=== PATIENT | female | born 1970 | race Caucasian/White ===

== ENCOUNTER → 2020-02-03 10:25 | Outpatient (CLI) | payer SELFPAY ==
--- NOTE | 2020-02-03 10:35 | MRI_ITS ---
STUDY: MRI LUMBAR SPINE WITHOUT CONTRAST REASON FOR EXAM: Female, 49 years old. segmental/somatic dysfunction of lumbar region -- pain low back and left leg since 08/2019 TECHNIQUE: Standardized fat and water weighted pulse sequences were obtained in the sagittal and axial planes. COMPARISON: None. FINDINGS: Mild lumbar straightening. No significant scoliosis. Conus medullaris terminates normally at the L1 level. No acute fracture. No dislocation. No bone destruction. Sacral Tarlov cyst. Normal paraspinal muscles. Sacrum intact. Normal aorta. Distended gallbladder. T12-L1: Normal endplates. Normal disc height, hydration and morphology. Normal bilateral facet joints. Normal central canal and bilateral lateral recesses. Normal bilateral intervertebral neural foramina. L1-2: Normal endplates. Normal disc height, hydration and morphology. Normal bilateral facet joints. Normal central canal and bilateral lateral recesses. Normal bilateral intervertebral neural foramina. L2-3: Normal endplates. Mild disc desiccation. Normal bilateral facet joints. Normal central canal and bilateral lateral recesses. Normal bilateral intervertebral neural foramina. L3-4: Normal endplates. Shallow disc bulge. Normal bilateral facet joints. Normal central canal and bilateral lateral recesses. Normal bilateral intervertebral neural foramina. L4-5: Normal endplates. Minimal disc desiccation. Normal bilateral facet joints. Normal central canal and bilateral lateral recesses. Normal bilateral intervertebral neural foramina. L5-S1: Normal endplates. Normal disc height, hydration and morphology. Normal bilateral facet joints. Normal central canal and bilateral lateral recesses. Normal bilateral intervertebral neural foramina. MRI/Spine Lumbar (Routine) IMPRESSION: Minimal intervertebral disc disease without canal narrowing No significant lateral recess or neural foraminal narrowing Mild lumbar straightening without significant osseous degenerative features Electronically Signed: Dane Huerta DO at 12:15 EDT Tel , Service support ,
== END ==
DX: M99.04 Segmental and somatic dysfunction of sacral region (principal); M99.03 Segmental and somatic dysfunction of lumbar region
CPT/HCPCS: 72148

== ENCOUNTER 2021-05-25 06:20 | Day surgery (SDC) | payer SELFPAY ==
[2021-05-25 07:01] LABS: Internal QC Validated? YES +Cl - CLEAR BKGD; Pregnancy, Urine Negative Negative
[2021-05-25 07:17] VITALS: BP 100/71; PULSE 64; RESP 16; TEMP 36.4; O2SAT 100; BMI 18.9
[2021-05-25] MEDS: Lactated Ringers 1,000 ML 100 ML IV (07:29)
--- NOTE | 2021-05-25 07:41 | HP.PCM_ITS ---
History and Physical Date of Admission: 05/25/21 Date of Service: 03/27/21 MR#:[id number]:[id number]: MATY CELESTE #:[id number]:[id number] Provider:Farzana George/Sex: 50/F [facility] Vital Signs 03/27/21 08:28 Height 5 ft 7 in Weight: 125 lb BMI 19.5 BP 119/73 Blood Pressure Location Rt brachial Position Sitting Respiration 16 Intake Visit Reasons: CSCOPE, CHANGE BOWEL HABITS Chief Complaint: family hx Overlock Elastic Attacher Required: No Is patient in pain?: No Allergies No Known Allergies Allergy (Verified 03/27/21 08:29) Medications ergocalciferol (vitamin D2) 50 mcg (2,000 unit) capsule 50 mcg PO DAILY 03/27/21 [History Confirmed 03/27/21] magnesium 250 mg tablet 250 mg PO DAILY 03/27/21 [History Confirmed 03/27/21] omega-3 fatty acids-fish oil 300 mg-500 mg capsule cap PO 03/27/21 [History Confirmed 03/27/21] pyridoxine (vitamin B6) 500 mg tablet 500 mg PO DAILY 03/27/21 [History Confirmed 03/27/21] turmeric 400 mg capsule mg PO 03/27/21 [History Confirmed 03/27/21] vitamin A palmitate 10,000 unit tablet 10,000 unit PO DAILY 03/27/21 [History Confirmed 03/27/21] vitamin E 200 unit capsule 200 unit PO DAILY 03/27/21 [History Confirmed 03/27/21] zinc 50 mg tablet 50 mg PO DAILY 03/27/21 [History Confirmed 03/27/21] [facility] Medical History (Updated 03/27/21 @ 09:[address] Jonathan Galeana MD) Back problem Family History (Updated 03/27/21 @ 08:28 by Lena Yeboah) Grandfather Colon cancer Father Hypertension Mother Cancer multiple myeloma Social History (Updated 03/27/21 @ 08:28 by Lena Yeboah) Smoking Status: Never smoker alcohol intake: never HPI HPI HPI: MATY CELESTE, is a 50 F who presents to the office today with need to schedule screening colonoscopy. They are self-referred. Patient has not had prior colonoscopy. Patient has no personal history of inflammatory bowel disease, diverticulitis, or colon cancer. They describe their bowel habits as normal/regular and they noticed no blood with their stools. Patient has family history of colon cancer in paternal grandfather and paternal aunt?both were diagnosed at advanced ages. The patient's weight is not stable?she states this is gone on for many years and she routinely fluctuates 5 to 7 pounds per week, but denies any sustained unintentional weight loss. Ms. Celeste does take fish oil supplements. She and her significant other lead very active lifestyles including bike riding and weight lifting in the gym. ROS General General: No weight change, appetite, fatigue, colon cancer, breast cancer or weakness HEENT HEENT: No difficulty swallowing, eye injury, eye surgery, swollen glands or hoarseness Endo Endocrine: No thyroid disease, diabetes mellitus, thyroid cancer, Hair loss, heat intolerance or cold intolerance Skin Skin: No rash or changing moles Breast Breast: No left breast lump, right breast lump, nipple discharge, breast pain, abnormal mammogram, abnormal US or breast enlargement Musc Musculoskeletal: Yes back problems; No arthritis, rheumatoid arthritis, gout or joint pain Cardio Cardiovascular: No murmur, pacemaker, heart disease, atrial fibrillation, high blood pressure, heart attack, heart stent, palpitations, shortness of breat with exertion or chest pain Psych Psychiatric: No depression, anxiety or hearing voices Resp Respiratory: No shortness of breath, No sleep apnea, No cough, No COPD, No asthma, No emphysema and No wheezing Gastro Gastrointestinal: No abdominal pain, No nausea or vomiting, No diarrhea, No constipation, No blood in stool, No acid reflux, No hemorrhoids, No ulcers, No gallbladder problem and No black,tarry stools Ant Hematologic: No blood thinners, No blood disorders, No bleeding, No anemia and No blood clots Neuro Neurologic: No system reviewed and no additional complaints, except as documented, No as per HPI, No abnormal gait, No abnormal hearing, No abnormal movements, No abnormal speech, No behavioral changes, No burning sensations, No confusion, No convulsions, No disequilibrium, No dizziness, No localized weakness, No frequent falls, No headache(s), No lack of coordination, No loss of vision, No memory loss, No numbness, No other visual disturbances, No radicular pain, No restless legs, No sensory deficit, No syncope, No tingling, No tremor(s), No weakness and No other Exam Const General: cooperative, healthy appearing and no acute distress Resp Effort & Inspection: normal respiratory effort Auscultation: clear to auscultation bilaterally, no rales, no rhonchi and no wheezes Cardio Rate: regular rate Rhythm: regular rhythm Heart Sounds: S1 normal and S2 normal GI Inspection: non-distended, no scars and visible herniation (Small umbilical) Palpation: soft, hernia umbilical (Fat-containing, reducible) and nontender Assessment and Plan Assessment and Plan (1) Colon cancer screening: Status: Acute Comment: Patient is due to complete screening colonoscopy given her age. She has 2 relatives on her father's side with histories of colon cancer. However both were diagnosed will be on 60 years of age?suggesting an overall average colon cancer risk. Patient has no present GI complaints. Plan - Dr. Jonathan Galeana MD: Plan will be to complete colonoscopy on first mutually?agreeable date under local MAC. Pre-procedure prep discussed and paper instructions provided. Patient is also made aware that she will need to have a local hazmat driver with her the day of the procedure. (2) Umbilical hernia without obstruction and without gangrene: Status: Acute Comment: Incidentally?noted. Patient unaware until today's exam. I did discuss with her the merits of an elective repair to hopefully avoid significant complications long-term. In conjunction with this discussion I shared with her the need to plan for convalescent time so that the repair is not stressed?especially in light of her active lifestyle. She seems to express appreciation for this information and would like additional time to consider possible surgical intervention. Plan - Dr. Jonathan Galeana MD: ?Patient's hernia would be amenable to a primary tissue repair should she so choose to have this completed. Will await word from her whether she is interested in pursuing this. Coding Level of Care Code Off vis,est,level 3 Diagnoses Colon cancer screening Z12.11 Umbilical hernia without obstruction and without gangrene K42.9 I have re-examined the patient. There are no clinical changes since date of exam. She states that she completed her prep without any difficulty. She confirms that her output has been clear. She asked further questions about her umbilical hernia and requests an abdominal ultrasound before proceeding with any further discussions of surgical intervention. Plan to proceed today with screening colonoscopy under local MAC.
[2021-05-25 09:30] VITALS: BP 100/71; BP 112/68; PULSE 70; RESP 14; TEMP 35.8; O2SAT 100
--- NOTE | 2021-05-25 09:34 | OP.COLON_ITS ---
Patient Name: Disha Andino Procedure Date: 05/25/2021 8:43 AM Date of : 1970 Age: 50 Procedure: Colonoscopy Indications: Screening for colorectal malignant neoplasm Providers: Jonathan Galeana MD Referring MD: Jonathan Galeana MD Medicines: See the Anesthesia note for documentation of the administered medications Patient Profile: This is a 50 year old female. Refer to note in patient chart for documentation of history and physical. Last Colonoscopy: none. The patient's first colonoscopy is today. Complications: No immediate complications. Estimated blood loss: Minimal. Procedure: Pre-Anesthesia Assessment: - The anesthesia plan was to use moderate sedation/analgesia (conscious sedation). - The heart rate, respiratory rate, oxygen saturations, blood pressure, adequacy of pulmonary ventilation, and response to care were monitored throughout the procedure. After I obtained informed consent, the scope was passed under direct vision. Throughout the procedure, the patient's blood pressure, pulse, and oxygen saturations were monitored continuously. The adult colonoscope was introduced through the anus and advanced to the terminal ileum. The colonoscopy was somewhat difficult due to a tortuous colon. Successful completion of the procedure was aided by applying abdominal pressure. The patient tolerated the procedure well. The quality of the bowel preparation was adequate to identify polyps. The terminal ileum and the rectum were photographed. Scope In: 8:55:01 AM Scope Withdrawal Time 0 hours 14 minutes 35 seconds Scope Out: 9:25:40 AM Total Procedure Duration Time 0 hours 30 minutes 39 seconds Findings: The entire examined colon appeared normal on direct and retroflexion views. Skin tags were found on perianal exam. Impression: - The entire examined colon is normal on direct and retroflexion views. - Perianal skin tags found on perianal exam. - No specimens collected. Recommendation: - Discharge patient to home (via wheelchair). - Repeat colonoscopy in 10 years for screening purposes. - Continue present medications. Procedure Code(s): --- Professional --- G0121, Colorectal cancer screening; colonoscopy on individual not meeting criteria for high risk Diagnosis Code(s): --- Professional --- Z12.11, Encounter for screening for malignant neoplasm of colon K64.4, Residual hemorrhoidal skin tags CPT copyright 2017 [employer]. All rights reserved. The codes documented in this report are preliminary and upon yard hostler review may be revised to meet current compliance requirements. Jonathan Galeana MD 05/25/2021 9:33:45 AM This report has been signed electronically. Number of Addenda: 0 Note Initiated On: 05/25/2021 8:43 AM
[2021-05-25 09:35] VITALS: BP 100/71; BP 114/62; PULSE 69; RESP 16; O2SAT 100
--- NOTE | 2021-05-25 09:35 | OP.CCLET_ITS ---
05/25/2021 No Primary Care Physician Re : Colonoscopy procedure for Disha Andino Dear Care Physician This procedure was performed on April. My impressions and recommendations are as follows: Impressions : - The entire examined colon is normal on direct and retroflexion views. - Perianal skin tags found on perianal exam. - No specimens collected. Recommendations : - Discharge patient to home (via wheelchair). - Repeat colonoscopy in 10 years for screening purposes. - Continue present medications. My findings are described in the full procedure note, which is enclosed. If I can be of further assistance, please feel free to contact me at Doctor phone number(s): , Work: . Sincerely, Jonathan Galeana MD 05/25/2021 9:33:45 AM This report has been signed electronically.
[2021-05-25 09:40] VITALS: BP 100/71; BP 107/73; PULSE 68; RESP 16; O2SAT 100
[2021-05-25 09:45] VITALS: BP 100/71; BP 103/66; PULSE 63; RESP 16; TEMP 36.1; O2SAT 100
[2021-05-25 09:59] VITALS: BP 100/71
== END 2021-05-25 10:20 ==
LOC: EN 06:24 → AC 06:26
PROVIDERS: Anesthesiology; Referring Provider Surgery; Visit Provider Surgery
PROC: 0DJD8ZZ Inspection of Lower Intestinal Tract, Via Natural or Artificial Opening Endoscopic (ICD-10-PCS; CPT 45378; principal; 2021-05-25 07:25)
DX: K64.4 Residual hemorrhoidal skin tags (principal); Q43.8 Other specified congenital malformations of intestine; Z80.0 Family history of malignant neoplasm of digestive organs; Z79.899 Other long term (current) drug therapy
CPT/HCPCS: 45378; 81025; 87426; C9803; J7120; J2405

== ENCOUNTER 2021-09-04 06:48 | Outpatient (CLI) | payer SELFPAY ==
--- NOTE | 2021-09-04 06:54 | CT_ITS ---
STUDY: CT ABDOMEN AND PELVIS WITH CONTRAST REASON FOR EXAM: Female, 50 years old. Abdominal bulging, possible hernia RADIATION DOSAGE (If Supplied By Facility): CTDIvol = ( 16.02 ) mGy, DLP = ( 411.4 ) mGycm TECHNIQUE: Transaxial images were obtained from the dome of the diaphragm to the symphysis pubis without oral contrast. IV 100mL Isovue-300 was administered. Sagittal and coronal images were reconstructed. Individualized dose optimization techniques were used for this CT. COMPARISON: None. FINDINGS: The visualized lung bases are unremarkable. The visualized portions of the heart are within normal limits. Normal liver. Normal gallbladder and extrahepatic biliary system. Normal spleen. Normal pancreas. Normal bilateral adrenal glands. Normal right kidney. Normal left kidney. Normal visualized stomach. Normal small intestine. Normal colon. The appendix is visualized and appears normal. Normal abdominal aorta. Normal inferior vena cava. Normal retroperitoneum. Nondistended, poorly evaluated urinary bladder. There is a small (1.0 x 1.7 cm) umbilical hernia containing fat. Normal osseous structures. CT/Abdomen/Pelvis W IV Cont ONLY IMPRESSION: Very small periumbilical fat-containing hernia. No inguinal hernia. Electronically Signed: Jung Herr MD (Brooks) at 8:18 EST Reading Location ID and State: / [place] , Service support ,
== END 2021-09-04 23:59 | disposition home or self-care (01) ==
PROVIDERS: Referring Provider Surgery; Visit Provider Surgery
DX: K46.9 Unspecified abdominal hernia without obstruction or gangrene (principal)
CPT/HCPCS: 74177; Q9967

== ENCOUNTER → 2021-11-20 | Outpatient (CLI) | payer SELFPAY ==
[2021-11-27 16:02] LABS: HPV APTIMA, High Risk Negative (Negative)
== END | disposition home or self-care (01) ==
LOC: LABSPEC 17:48
PROVIDERS: Visit Provider Nurse Practitioner Women's Health
DX: Z12.4 Encounter for screening for malignant neoplasm of cervix (principal)
CPT/HCPCS: 87624; 88175; G0145

== ENCOUNTER → 2022-02-12 | Outpatient (CLI) | payer SELFPAY ==
--- NOTE | 2022-02-12 18:18 | US_ITS ---
STUDY: ULTRASOUND OF THE FEMALE PELVIS - COMPLETE REASON FOR EXAM: Female, 51 years old. Abnormal bleeding LMP: 12/10/2021 TECHNIQUE: Transabdominal and Transvaginal TECHNICAL QUALITY: Adequate. COMPARISON: None. FINDINGS: The uterus is retroflexed and is in a midline position. The uterus measures 6.3 x 4.3 x 2.5 cm. Normal uterine cervix. The endometrium measures 1.7 mm in thickness, and is hyperechoic. There is no demonstrated endometrial mass. 2 separate uterine fibroids, both measure approximately 2.2 cm. I.U.D. - The patient does not have an I.U.D. The right ovary is visualized. The right ovary measures 2.3 x 1.4 x 0.8 cm. There is no right ovarian cyst or ovarian mass. There is no visualized right adnexal mass or complex lesion. There is normal arterial and normal venous vascularity. The left ovary is visualized. The left ovary measures 3.1 x 2.2 x 0.9 cm. There is no left ovarian cyst or ovarian mass. There is no visualized left adnexal mass or complex lesion. There is normal arterial and normal venous vascularity. There is moderate free fluid in the cul-de-sac of uncertain etiology The bladder is incompletely distended There is a left inguinal hernia measuring 2.5 x 2.2 x 0.9 cm with subcentimeter in short axis dimension physiologic left inguinal lymph nodes. US/Pelvic (Non ) IMPRESSION: 2 small uterine fibroids, endometrium is of normal thickness for age No suspicious adnexal mass there is mild to moderate free fluid in the cul-de-sac of uncertain etiology Left inguinal hernia with associated subcentimeter in short axis dimension physiologic lymph nodes Electronically Signed: Sumanth Jeffrey MD at 23:19 EDT ,
--- NOTE | 2022-02-12 18:18 | US_ITS ---
STUDY: ULTRASOUND OF THE FEMALE PELVIS - COMPLETE REASON FOR EXAM: Female, 51 years old. Abnormal bleeding LMP: 12/10/2021 TECHNIQUE: Transabdominal and Transvaginal TECHNICAL QUALITY: Adequate. COMPARISON: None. FINDINGS: The uterus is retroflexed and is in a midline position. The uterus measures 6.3 x 4.3 x 2.5 cm. Normal uterine cervix. The endometrium measures 1.7 mm in thickness, and is hyperechoic. There is no demonstrated endometrial mass. 2 separate uterine fibroids, both measure approximately 2.2 cm. I.U.D. - The patient does not have an I.U.D. The right ovary is visualized. The right ovary measures 2.3 x 1.4 x 0.8 cm. There is no right ovarian cyst or ovarian mass. There is no visualized right adnexal mass or complex lesion. There is normal arterial and normal venous vascularity. The left ovary is visualized. The left ovary measures 3.1 x 2.2 x 0.9 cm. There is no left ovarian cyst or ovarian mass. There is no visualized left adnexal mass or complex lesion. There is normal arterial and normal venous vascularity. There is moderate free fluid in the cul-de-sac of uncertain etiology The bladder is incompletely distended There is a left inguinal hernia measuring 2.5 x 2.2 x 0.9 cm with subcentimeter in short axis dimension physiologic left inguinal lymph nodes. US/Transvaginal Non- IMPRESSION: 2 small uterine fibroids, endometrium is of normal thickness for age No suspicious adnexal mass there is mild to moderate free fluid in the cul-de-sac of uncertain etiology Left inguinal hernia with associated subcentimeter in short axis dimension physiologic lymph nodes Electronically Signed: Sumanth Jeffrey MD at 23:19 EDT ,
== END | disposition home or self-care (01) ==
PROVIDERS: Visit Provider Nurse Practitioner Women's Health
DX: N94.6 Dysmenorrhea, unspecified (principal)
CPT/HCPCS: 76830; 76856

== ENCOUNTER → 2022-07-10 | Outpatient (CLI) | payer SELFPAY, BC ==
--- NOTE | 2022-07-10 16:57 | CT_ITS ---
EXAM: CT abdomen and pelvis with contrast. HISTORY: incarcerated hernia TECHNIQUE: CT Abdomen And Pelvis W/ Contrast Injection. A radiation dose optimization technique was used for this scan. COMPARISON: CT abdomen and pelvis September 04, 2021. LIMITATIONS: None. LOWER CHEST: Normal. LIVER: Normal. GALLBLADDER: Normal. BILE DUCTS: Normal. PANCREAS: Normal. SPLEEN: Normal. ADRENAL GLANDS: Normal. KIDNEYS/URETERS/BLADDER: 3 mm nonobstructing left renal stone. No obstructing ureteral stones or hydronephrosis. AORTA: Normal caliber. BOWEL/MESENTERY: No evidence of colitis. A small umbilical hernia contains only fat. A small left inguinal hernia contains fat and a possible mild amount of fluid. No herniated bowel. No bowel obstruction. APPENDIX: Normal. PERITONEUM: Normal. REPRODUCTIVE ORGANS: Few possible fibroids. BONES/SOFT TISSUES: No acute fracture. OTHER: None. CONCLUSION: Small fat-containing umbilical and left inguinal hernias. No herniated bowel. No bowel obstruction. Electronically Signed: Deng Sun MD at 4:00 EST , CT/Abdomen/Pelvis WITH Contrast IMPRESSION: undefined
== END | disposition home or self-care (01) ==
LOC: CT 16:55
PROVIDERS: Visit Provider Surgery
DX: R10.32 Left lower quadrant pain (principal)
CPT/HCPCS: 74177; Q9967

== ENCOUNTER 2022-08-20 09:36 | Day surgery (SDC) | payer BC, SELFPAY ==
--- NOTE | 2022-08-17 07:01 | EKG12_ITS ---
Test Reason : PRE Blood Pressure : / mmHG Vent. Rate : 060 BPM Atrial Rate : 060 BPM P-R Int : 164 ms QRS Dur : 090 ms QT Int : 408 ms P-R-T Axes : 083 086 078 degrees QTc Int : 408 ms Normal sinus rhythm Septal infarct , age undetermined Abnormal ECG Confirmed by OZIEL BISHOP, MARTINA ([id number]), city editor MARIMAR MCKENZIE ([id number]) on 08/20/2022 10:40:06 AM Referred By: Jonathan Galeana Confirmed By:MARTINA LUDWIG MD
--- NOTE | 2022-08-20 | IMM_PTH ---
PATIENT: MATY CELESTE LOC: [facility] [place] U#:[id number] AGE/SX: 51/F ROOM: RE08/20/[address]: Dr. Jonathan Galeana MD : 1970 BED: DIS: 08/20/2022 SPEC #: [id number] RECD: 08/22/22 14:31 STATUS: RAUL REQ #: [id number] HAO: 08/20/22 00:[address]: Jonathan Galeana DEPT: IMMUNOHISTOCHEMISTRY RECD BY: Shana Recinos ENTERED: 08/22/22 14:33 SP TYPE: IMMUNO OTHR DR: No Primary Care Phys Tissues: Inguinal region, NOS Procedures: SMA (add) Amaury Ret (add) MACRO (add) P53 (add) Vimentin (add) Pankeratin (initial) S-100 (add) PHYSICIAN & INSTITUTION [place] [id number] SPECIMEN INFORMATION: Tissue Source: Left groin incarcerated fat Clinical Info: Inguinal nodule, left groin pain Specimen Number: [id number] CPT code: 90950, 26913 x6 METHODOLOGY: Deparaffinized sections of prefer/formalin-fixed tissue or PAP/DQ stained slides are incubated with monoclonal/polyclonal antibodies/oligonucleotide probes. Localization is made via biotin free immunoperoxidase method. Appropriate controls are performed and reacted as expected. Results on target cell population are indicated in the following table: RESULTS: ANTIBODY / CLONE RESULT AE1-3 (AE1/AE3/PCK26) positive Macro (HAM-56) positive S-100 (4C4.9) negative CALRET (polyclonal) negative P53 (DO-7) negative Vimentin (V9) positive Actin (1A4) negative These tests were developed and their performance characteristics determined by [facility]. They may not have been cleared or approved by the U.S. Food and Drug Administration. The FDA has determined that such clearance or approval is not necessary. The above immunohistochemical/dualISH markers are ordered and reviewed by the Pathologist. INTERPRETATION: Incarcerated fat of left groin, excision: Consistent with organizing fat necrosis. AM:joellen 08/24/2022
--- NOTE | 2022-08-20 | HERN_PTH ---
PATIENT: MATY CELESTE LOC: [facility] [place] U#:[id number] AGE/SX: 51/F ROOM: RE08/20/[address]: Dr. Jonathan Galeana MD : 1970 BED: DIS: 08/20/2022 SPEC #: [id number] RECD: 08/20/22 15:03 STATUS: RAUL WYATT #: [id number] HAO: 08/20/22 00:[address]: Jonathan Galeana DEPT: SURGICAL PATHOLOGY RECD BY: Mateusz Garcia ENTERED: 08/21/22 11:14 SP TYPE: Hernia OTHR DR: No Primary Care Phys Tissues: Inguinal region, NOS Procedures: Surgery Specimen Level IV HEADER OPERATION: Lap robotic inguinal hernia, open umbilical hernia repair PRE-OP DIAGNOSIS: Inguinal nodule, left groin pain TISSUE SUBMITTED: Left groin incarcerated fat MICROSCOPIC DIAGNOSIS Incarcerated fat of left groin, excision: Fat necrosis, fibrosis, and mild chronic inflammation. See comment. AM:joellen 08/22/2022 COMMENT Immunohistochemistry ([id number]) supports the above diagnosis. Case has been reviewed in consultation with Dr. Major who concurs with the above diagnosis. IDC:[email or web address] MICROSCOPIC DESCRIPTION Slides are reviewed. GROSS DESCRIPTION Received in fixative is one container labeled with the patient's name and designated incarcerated fat left groin. The specimen consists of an ovoid piece of adipose tissue measuring 2.5 x 1.5 x 1.5 cm. Sections reveal yellowish-white cut surfaces. Reimbursement Analyst sections are submitted in one cassette. / SJ:joellen 08/21/2022 TC:3 CPT: 56745
[2022-08-20 10:25] VITALS: BP 99/61; PULSE 66; RESP 16; TEMP 36.7; O2SAT 98; BMI 19.4
[2022-08-20 10:30] LABS: Internal QC Validated? YES +Cl - CLEAR BKGD; Pregnancy, Urine Negative Negative
--- NOTE | 2022-08-20 11:18 | PCM.HP.BLA ---
History and Physical Date of Admission: 08/20/22 Date of Service:? 07/09/22 MR#: [id number] Acct: [id number] Name:MATY HENDRIX Rep #: [id number] : 1970 ? ? Provider: Dr. Jonathan Galeana MD Age/Sex:? 51/F ? ? Location: [facility] [email or web address] Status: Signed Intake Intake Visit Reasons:?RECHECK HERNIA Chief Complaint: recheck hernia Operations Officer Afloat Required: No Is patient in pain?: No Allergies No Known Allergies Allergy (Verified 07/09/22 10:24) Medications magnesium 250 mg tablet 250 mg PO DAILY 03/27/21 [History Confirmed 07/09/22] omega-3 fatty acids-fish oil 300 mg-500 mg capsule (Fish Oil) 1 cap PO DAILY 03/27/21 [History Confirmed 07/09/22] pyridoxine (vitamin B6) 500 mg tablet 500 mg PO DAILY 03/27/21 [History Confirmed 07/09/22] turmeric 400 mg capsule 400 mg PO DAILY 03/27/21 [History Confirmed 07/09/22] vitamin A palmitate 10,000 unit tablet 10,000 unit PO DAILY 03/27/21 [History Confirmed 07/09/22] vitamin E 200 unit capsule 200 unit PO DAILY 03/27/21 [History Confirmed 07/09/22] zinc 50 mg tablet 50 mg PO DAILY 03/27/21 [History Confirmed 07/09/22] cholecalciferol (vitamin D3) 125 mcg (5,000 unit) tablet (Vitamin D3) 250 mcg PO DAILY 05/22/21 [History Confirmed 07/09/22] PFSH Medical History?(Updated 07/09/22 @ 11:[address] Jonathan Galeana MD) Alcohol use ASCUS of cervix with negative high risk HPV Back problem Hernia Left groin pain Non-smoker Restless legs Wears contact lenses Surgical History? No history of previous surgery Family History? Grandfather Colon cancerFather HypertensionMother Cancer ?? ? multiple myeloma Social History? household members:? significant other number of children:? 0 current occupational status:? employed current occupation:? [employer] Smoking Status:? Never smoker alcohol intake:? current alcohol intake frequency: a few times a month substance use type:? does not use what type of physical activity do you participate in:? yoga, aerobics and weight training frequency:? 5-6 times per week seatbelt use:? always do you feel safe at home:? Yes additional social history:? single Female Reproductive History Menstrual Ab spontaneous: 4 HPI HPI HPI: Patient presents for follow-up of an umbilical hernia.? Her last visit with me was 08/16/2021.? She states that she has overall enjoyed a relatively good year of health, however, this past Saturday (07/07/2022) she noticed her discomfort in her left groin kicked up.? By this she describes bilateral shooting pains into her groins as she was lounging around her house.? At the same time she noticed a bulge in her left groin the size of a golf ball.? She grew concerned and was on the verge of coming into the ER, but she was afraid of clogging the system and so she elected not to come in.? She states that she had been constipated up until that point and took some Greek Ulises to try to facilitate a bowel movement.? Once this happened, she had some symptomatic relief, but the bulge persisted.? Therefore, she sought evaluation with us this morning. Below is recapitulated from patient's previous clinic visit for ease of review: HPI: MATY CELESTE, is a 50 F who presents to the office today for follow-up of an umbilical hernia that was 1st diagnosed during her initial consultation 03/27/2021 for purposes of scheduling a screening colonoscopy.? She went on to have a unremarkable colonoscopy exam 05/25/2021 and we again discussed possible repair of her umbilical hernia.? Patient has been out of town and her [facility] home but is in the area through the end of the week and wishes to discuss timing for her umbilical hernia repair.? She is quick to mention that she is not overly eager to undergo surgery because of nervousness related to a difficult postoperative course that a close friend endured after they underwent hernia repair and experienced unforeseen complications?and also secondary to pandemic concerns. In the interim since her last visit, she states that she has been enjoying a higher quality of health with resolution of some leg and back pain and bloating.? She states that she went through a battery of blood work with [facility] and concluded she was allergic to a number of foods which she is not limited from her diet and this is resulted in some of these favorable improvements.? She also states that she has back to the gym lifting, but confirms this is not heavy lifting and is feeling healthier.? She is simply frustrated that she has not been able to get back to her sixpack abs.? In addition to the umbilical hernia, which she states has been stable, she raises the issue of a new bump in her left groin.? She states this was 1st noticed approximately 3 weeks ago.? She denies any lifting or exertional activity at the time it was noticed.? It does not cause her any discomfort but is of concern because it is clearly palpable. Exam Const General: cooperative and no acute distress Nutritional Appearance: thin Orientation: alert, awake and oriented x3 Resp Effort & Inspection: normal respiratory effort GI Other: Nondistended, soft, stable umbilical hernia with no tenderness palpation x4 quadrants. Other: Moderate sized bulge that is semimobile and tender to palpation.? Resides just medial to the femoral vessels.? Ultrasound exam is made of this area and there is a significant fluid component with some solid hyperechoic echogenicity at the base of the finding.? There is no demonstrable connection to the peritoneal cavity.? Despite manual traction on the area there is no reduction in size. Assessment and Plan Assessment and Plan (1) Inguinal nodule: ?Status:?Acute ?Comment: Patient with nearly 1 year history of left inguinal nodule.? Seen by me previously for this issue and was determined to be an inguinal lymph node with CT imaging.? However, patient had an independent evaluation with women's health and an ultrasound was performed in January where radiology felt there was evidence of a inguinal hernia.? Patient presents today with complaints of acute onset pain and bulging?starting this weekend?both of which are improved over the last day.? By ultrasound, this area does not clearly resemble a simple lymph node as there is a significant fluid component, but it is not able to be reduced even with significant traction.? Patient does confirm normal bowel movements now.? I have shared with patient that I am suspicious for possible incarcerated femoral hernia with fat versus lymph node that has either experienced acute hemorrhage event or liquefaction.? I have discussed investigation/treatment options extensively with patient to include CT with IV and enteral contrast stat versus ER evaluation and inpatient admission with possible urgent operation.? I offered to place a laparoscope via the patient's umbilical hernia and more definitively investigate her left groin area, however, she reports a number of imminent plans and travel.? Therefore, we jointly settled on performing the imaging first, but she has been cautioned that she should present immediately should she have worsening of her pain or bulging to the emergency room. ?Plan: ? CT of the abdomen pelvis with p.o. and IV contrast stat ? Remainder of treatment plan to be formulated depending on the results of the above (2) Left groin pain: ?Status:?Acute ?Comment: Associated with left groin bulge.? Left inguinal/femoral hernia remains in the differential.? Performing CT of the abdomen pelvis with p.o. and IV contrast stat to further evaluate. ? ? ? Orders: Orders Abdomen/Pelvis WITH Contrast Today R10.32 - Left lower quadrant pain ? I have examined the patient and the H&P has been reviewed. There are no clinical changes since date of exam. Patient is still having left groin discomfort and is eager to be throughout the procedure. I reviewed with both her and her significant other expectations following the procedure?to include no lifting greater than 10 pounds for 5 weeks, aggressive management of any constipation sneezing or coughing, and limiting travel to no air travel in the first 14 days after surgery. They expressed understanding appreciation for this information. Further, I confirmed that patient is prepared for a open primary umbilical hernia repair concurrently with today's left inguinal procedure. We will proceed to the operating room for procedures as discussed.
[2022-08-20] MEDS: Cefazolin 2 GM in 0.9% Normal Saline 100 ML IV (11:42)
[2022-08-20] MEDS: Lactated Ringers 1,000 ML 15 ML IV ×2 (12:00→14:51)
[2022-08-20] MEDS: Bupivacaine Mpf 0.5% 30 ML VIAL (14:25)
--- NOTE | 2022-08-20 14:51 | PCM.OPRPT ---
Problems Associated Problem List Diagnoses (1) Hernia: Report of Operation Date of Procedure: 08/20/22 Pre-Operative Diagnosis: 1. Left inguinal hernia 2. umbilical hernia Post-Operative Diagnosis: 1. Left incarcerated femoral hernia 2. Umbilical hernia Surgery/Procedure Performed:: 1. Robot-assisted left femoral hernia repair with mesh 2. Open umbilical hernia repair (primary repair) Description of Surgical Findings:: ? Epiploic appendage from sigmoid colon protruding through a femoral hernia defect?chronically incarcerated ? 1 cm umbilical hernia with nonincarcerated fat Surgeon: Jonathan Galeana order checker packer processer: Miguel Angel Avilez order checker packer processer: Torres Rodrigez Type of Anesthesia: General/Supplemental Anesthesiologist: Tien Collazo Specimen's removed: Left groin incarcerated fat Drains: None Estimated Blood Loss (mL): 50 Description of Procedure: After appropriate identification the preoperative holding area the patient was brought to the operating room where she was positioned supine on the operating table. Preoperative antibiotics were completed and the patient was administered a general anesthetic. Patient's abdomen was then prepped and draped in usual sterile fashion. Formal timeout followed to confirm patient and procedure. Procedure was begun with an optical entry via a subxiphoid port site facilitated by Veress insufflation at Fairbanks's point (peritoneal pressures to 12 mmHg). Unfortunately this was complicated by entry into the patient's falciform and I could not easily direct the trocar out of the confines of the falciform ligament. Not wanting to put the patient's viscera at further risk, I elected to transition to a optical entry via the left upper quadrant port site where the Veress needle had been inserted. This proceeded uneventfully and we did confirm previous trocar placement within the falciform. Then under laparoscopic guidance our trocar was inserted through the subxiphoid port site and through the entirety of the falciform making sure that our remote center was appropriately positioned with respect to the abdominal wall. Finally a right paramedian incision was made and a 8 mm robotic trocar was placed with laparoscopic visualization. Patient was positioned in Trendelenburg and the robot was docked in standard fashion. The pelvis was inspected and it became immediately apparent that the patient had a epiploic appendage from the sigmoid colon protruding through a hernia defect in her left groin. Traction was applied to this epiploic fat, but it immediately ripped. To obtain immediate hemostasis, a Weck clip was inserted to the peritoneum and secured around the midportion of this appendage. Then robotically a peritoneal flap was created on the left and was bluntly dissected to expose the medial parietal compartment and lateral visceral compartments. Medially I could visualize the pubic tubercle and Johnny's ligament while laterally I extended the dissection down to the level of the ASIS. The hernia sac was identified and entered the femoral space. The round ligament was circumferentially dissected and bipolar energy was applied to establish hemostasis before it was sharply transected. Traction was applied but the hernia did not give easily. Carefully the hernia sac was grasped and the adherent soft tissues were swept away circumferentially. Even relieving these attachments the hernia remained incarcerated. Monopolar energy was applied directly anteriorly to partially disrupt the inguinal ligament superiorly. Again, traction was applied on the hernia sac and this time a large, chronically-incarcerated lobule of fat was delivered into the peritoneum. Given its compromised blood supply, it was amputated from its soft tissue attachments and placed aside for later removal from the peritoneum. The peritoneal flap was inspected to ensure that there was no pulling along the inferior portion of the flap when it was returned to its original position using the pull test. I made particular focus on dissecting the posterior lateral aspect of the peritoneum off the abdominal wall to accommodate our mesh. Once satisfied, a Bard 3D max, size large, regular weight mesh was placed into the abdomen along with suture. It was positioned within the preperitoneal pocket so that there was good medial and inferior overlap. It was then tacked to the abdominal wall at the adminiculum medially and superior laterally in a partial-thickness bite of the abdominal wall using a 3-0 Vicryl suture. The peritoneal flap was then closed with a running 3-0 V-Loc suture taking care to conceal the barbs of the suture beneath the peritoneum. As this closure proceeded, I made sure the mesh remained flat against the abdominal wall. Once the flap closure was complete, I undertook repair of our peritoneal defect where the hernia had previously protruded with 3-0 Vicryl. With the peritoneal defect closed, sutures were systematically removed from the peritoneum and the previously amputated incarcerated fat was placed into an Endo Catch bag. The specimen was then delivered from the peritoneum and pneumoperitoneum was evacuated. I then transition to closure of the patient's umbilical hernia where a curvilinear incision was made in the patient's infraumbilical skin after instilling local anesthetic. The hernia stalk was bluntly dissected free and the overlying skin was carefully amputated off the hernia contents with sharp dissection. Our 1 cm fascial defect was identified and I ensured that there was no attachments from the protruding omentum deeply. The small hernia was then closed using 2-0 Ethibond in a [id number] fashion. The fascia was injected with additional local anesthetic and the opening was probed to confirm complete closure. The umbilical skin was then tacked back down to the fascia using a interrupted 4-0 Monocryl suture. The incision was closed with a subcuticular technique again using 4-0 Monocryl. The port sites were closed at the skin with running 4-0 Monocryl in a subcuticular fashion. Steri-Strips and OpSite's were used as dressings (a rolled Telfa gauze was placed into the patient's umbilical concavity to train down the skin and obliterate the space. Patient was then awoken from anesthetic and transferred to PACU for ongoing recovery. Grafts/Implants Used: Bard 3D max mesh LOT: [id number], Ref: [id number] Complications None Admit VTE Documentation VTE Mechan Device Prophylaxis: SCD's
[2022-08-20 14:55] VITALS: BP 118/55; BP 99/61; PULSE 86; RESP 16; TEMP 36.4; O2SAT 99
[2022-08-20 15:02] VITALS: BP 118/55; BP 99/61; PULSE 80; RESP 16; O2SAT 97
[2022-08-20 15:15] VITALS: BP 105/60; BP 99/61; PULSE 80; RESP 16; O2SAT 98
[2022-08-20 15:30] VITALS: BP 103/62; BP 99/61; PULSE 69; RESP 16; TEMP 36.4; O2SAT 98
--- NOTE | 2022-08-20 15:44 | DCINST_ITS ---
Discharge Instructions Diet Discharge Diet: No restrictions Activity Discharge Activity: May Not Drive (No driving while using narcotic pain medication) May shower in (days): 2 Ice area for (Minutes): 20 Lifting Restrictions: No lifting greater than 10 pounds for 5 weeks after surgery Dressing / Incision Call your doctor if your incision/area has: Continuous Slow Oozing, Sudden Increased Bleeding, Increased Pain/ Swelling, Increased Redness, Foul Smelling Discharge and Swelling at the incision site Call your doctor if you observe: Fever of 101 or Higher and Inability to have a bowel movement Suture Line Care: Avoid Pulling/Pushing Remove Dressing in: 2 days (Remove 3 port site dressings in 2 days but leave umbilical dressing for 5 days) Cleanse incision/area with: Soap & Water Additional Dressing/Incision Instructions:: Please leave Steri-Strips intact until they fall off spontaneously or are taken off at your follow-up visit Follow Up Care Please Follow Up With: Jonathan Galeana MD When: 7 to 10 days postop Test Results: Test results from this visit will be discussed in further detail at your follow- up appointment, if applicable. Discharge Plan Admission Primary Reason for Your Visit: Left groin and umbilical hernias Attending Provider: Jonathan Galeana Primary Care Provider: Care PhysicianLiv Primary Discharge Orders/Prescriptions Prescriptions: New oxycodone 5 mg tablet 5 mg PO Q6H PRN (Reason: pain) 5 Days Qty: 20 0RF Continued pyridoxine (vitamin B6) 500 mg tablet 500 mg PO DAILY vitamin E 200 unit capsule 200 unit PO DAILY zinc 50 mg tablet 50 mg PO DAILY vitamin A palmitate 10,000 unit tablet 10,000 unit PO DAILY magnesium 250 mg tablet 250 mg PO DAILY Fish Oil 300-500 mg capsule 1 cap PO DAILY turmeric 400 mg capsule 400 mg PO DAILY cholecalciferol (vitamin D3) [Vitamin D3] 125 mcg (5,000 unit) Tablet 250 mcg PO DAILY Referrals / Follow Up: Care Physician,Liv Primary [Primary Care Provider] - Disposition Disposition (needs filled in before D/C Order can be placed): Home, Self Care
[2022-08-20] MEDS: oxyCODONE 5 MG Tablet PO (16:10)
[2022-08-20 16:41] VITALS: BP 104/62; BP 99/61; PULSE 73; RESP 16; TEMP 36.3; O2SAT 97
--- NOTE | 2022-08-20 17:19 | SUR.PHASEII ---
odt zofran given per written order on anesthesia order sheet d/t patient's nausea upon getting dressed for discharge.
== END 2022-08-20 17:22 | disposition home or self-care (01) ==
LOC: SDC 09:37 → AC 09:39
PROVIDERS: Anesthesiology; Referring Provider Surgery; Visit Provider Surgery
PROC: 0YQ64ZZ Repair Left Inguinal Region, Percutaneous Endoscopic Approach (ICD-10-PCS; CPT 49591; principal; 2022-08-20 11:00)
DX: K41.30 Unilateral femoral hernia, with obstruction, without gangrene, not specified as recurrent (principal); K42.0 Umbilical hernia with obstruction, without gangrene; G25.81 Restless legs syndrome; Z79.899 Other long term (current) drug therapy
CPT/HCPCS: 49591; 49650; 00830; 81025; 87081; 88302; 88305; 88341; 88342; 93005; J7120; C1781; J2405

== ENCOUNTER → 2024-06-08 | Outpatient (CLI) | payer SELFPAY ==
[2024-06-08 10:36] LABS: Vitamin D,25 Hydroxy 40.9 ng/mL
[2024-06-08 10:48] LABS: ALB/GLOB Ratio 1.3 RATIO (0.9-2.4); AST(SGOT) 15 U/L (15-37); Alanine Aminotransfer ALT/SGPT 34 U/L (13-56); Albumin, Serum 4.2 g/dL (3.2-5.0); Alkaline Phosphatase 64 U/L (45-117); Anion Gap 7 (5-15); BUN 20 mg/dL (7-18); BUN/Creat Ratio 30.3 RATIO (10-20); CRP < 2.90 mg/L (0.0-3.0); Calcium,Total 9.3 mg/dL (8.5-10.1); Chloride 106 mmol/L (98-107); Cholesterol 207 mg/dL (200); Creatinine, Serum 0.66 mg/dL (0.55-1.02); EST Glomerular Filtration Rate 99 mL/min (>60); Est Glom Filt Rate - Afr Amer 119 mL/min (>60); Estradiol < 11.0 pg/mL; Follicle Stimulating Hormone 95.2 mIU/mL; Globulin 3.3 g/dL (2.2-4.2); Glucose 103 mg/dL (74-106); High Density Lipoprotein 109 mg/dL; Potassium 3.9 mmol/L (3.5-5.1); Protein, Total 7.5 g/dL (6.4-8.2); Sodium Level 141 mmol/L (136-145); T4 Free Direct 0.77 ng/dL (0.76-1.46); Triglycerides 66 mg/dL; Very Low Density Lipoprotein 13 mg/dL (5-40)
[2024-06-13 18:07] LABS: HPV APTIMA, High Risk Negative (Negative)
== END | disposition home or self-care (01) ==
LOC: BWCLAB 09:19
PROVIDERS: Referring Provider Obstetrics & Gynecology; Visit Provider Obstetrics & Gynecology
DX: M25.50 Pain in unspecified joint (principal); R41.89 Other symptoms and signs involving cognitive functions and awareness; Z12.4 Encounter for screening for malignant neoplasm of cervix; Z13.21 Encounter for screening for nutritional disorder; Z13.220 Encounter for screening for lipoid disorders; Z13.29 Encounter for screening for other suspected endocrine disorder
CPT/HCPCS: 36415; 80053; 80061; 82306; 82670; 83001; 84439; 84443; 86140; 87624; 88175; G0145